=== PATIENT | female | born 1965 | race Two or more races ===

== ENCOUNTER 2018-11-21 13:20 | Emergency (ER) | payer MEDICAID ==
[~2018-11-21] VITALS: Ht 167.6 cm; Wt 78.0 kg
[2018-11-21] MEDS ORDERED: SODIUM CHLORIDE 0.9% 1,000 ML IV ONE (13:45)
[2018-11-21] MEDS ORDERED: KETOROLAC 60MG/2ML VIAL IM ONE (17:30)
[2018-11-21 17:46] LABS: BASOPHILS % 0.7 % (0.0-2.0); EOSINOPHILS % 4.3 % (0.0-5.0); HEMATOCRIT. 38.3 % (36.0-48.0); HEMOGLOBIN. 13.3 g/dL (12.0-16.0); LYMPHOCYTES % 28.9 % (20.0-50.0); MEAN CORPUSCULAR HEMOGLOBIN 31.8 pg (28.0-32.0); MEAN CORPUSCULAR VOLUME 91.5 fL (81.0-99.0); MEAN PLATELET VOLUME 10.1 fl (7.4-10.4); MONOCYTES % 8.9 % (2.0-8.0); NEUTROPHILS % 57.2 % (40.0-76.0); PLATELET 288 x1000/uL (130-400); RED BLOOD CELL COUNT 4.19 mill/uL (4.2-5.4); RED CELL DISTRIBUTION WIDTH 12.9 % (11.6-14.6)
[2018-11-21 17:50] LABS: CHLORIDE 105 mEq/L (98-107)
[2018-11-21] MEDS ORDERED: HYDROCODONE/ACETAMINOPHEN 5/325MG TABLET PO ONE (21:00)
[2018-11-22] MEDS ORDERED: ONDANSETRON HCL 4MG/2ML INJ IV NR (00:15)
[2018-11-22] MEDS ORDERED: MORPHINE SULFATE 4 MG/ML CPJ (NOT FOR IM USE) IV NR (00:15)
[2018-11-22] MEDS ORDERED: IOHEXOL-300 100 ML BOTTLE ONE (04:08)
[2018-11-22] MEDS ORDERED: ACETAMINOPHEN 325MG TABLET PO ONE (05:45)
[2018-11-22] MEDS ORDERED: KETOROLAC 15MG/ML VIAL IV ONE (08:30)
[2018-11-22 15:00] VITALS: BP 140/78
== END 2018-11-22 18:55 | disposition home or self-care (01) ==
LOC: ER 13:20 → CANBEDREQ 11-22 14:43 → ER 11-22 18:55
DX: M79.18 Myalgia, other site (principal); J45.909 Unspecified asthma, uncomplicated; F32.9 Major depressive disorder, single episode, unspecified; E11.9 Type 2 diabetes mellitus without complications; I10 Essential (primary) hypertension
CPT/HCPCS: 36415; 71045; 74177; 80048; 82962; 84484; 85025; 93005; 96372; 96374; 96375; 99284; J1885; J2270; J2405; J7030; Q9967

== ENCOUNTER 2019-03-14 11:18 | Inpatient (IN) | payer MEDICAID ==
[~2019-03-14] VITALS: Ht 162.6 cm; Wt 82.1 kg
[2019-03-14] MEDS ORDERED: KETOROLAC 60MG/2ML VIAL IM ONE (12:15)
[2019-03-14] MEDS ORDERED: SODIUM CHLORIDE 0.9% 1,000 ML IV ONE (16:39)
[2019-03-14 16:48] LABS: HEMATOCRIT. 41.1 % (36.0-48.0); HEMOGLOBIN. 14.1 g/dL (12.0-16.0); LYMPHOCYTES % 18.7 % (20.0-50.0); MEAN CORPUSCULAR HEMOGLOBIN 33.4 pg (28.0-32.0); MEAN CORPUSCULAR VOLUME 97.7 fL (81.0-99.0); MEAN PLATELET VOLUME 10.1 fl (7.4-10.4); MONOCYTES % 6.8 % (2.0-8.0); NEUTROPHILS % 72.5 % (40.0-76.0); PLATELET 349 x1000/uL (130-400); RED BLOOD CELL COUNT 4.21 mill/uL (4.2-5.4); RED CELL DISTRIBUTION WIDTH 14.6 % (11.6-14.6)
[2019-03-14 16:51] LABS: CHLORIDE 104 mEq/L (98-107)
[2019-03-14] MEDS ORDERED: FUROSEMIDE 20MG/2ML VIAL IVP ONE (17:45)
[2019-03-14] MEDS ORDERED: CLONIDINE 0.1MG TABLET PO PRN (18:30)
[2019-03-14] MEDS: ACETAMINOPHEN 325MG TABLET PO PRN (20:25)
[2019-03-14 22:00] VITALS: BP 155/91
[2019-03-14 22:05] VITALS: BP 155/91
[2019-03-14] MEDS ORDERED: GABA-529 PO (23:40)
[2019-03-15] VITALS: BP 142/82
[2019-03-15] MEDS ORDERED: DIVA-75 PO (00:05)
[2019-03-15] MEDS ORDERED: ATOR20TA65 PO (00:05)
[2019-03-15] MEDS ORDERED: LISI40TA4 PO (00:05)
[2019-03-15] MEDS ORDERED: TRAZ-251 PO (00:05)
[2019-03-15] MEDS ORDERED: ASPI-1497 PO (00:05)
[2019-03-15] MEDS ORDERED: AMLO5TAB88 PO (00:11)
[2019-03-15] MEDS: ACETAMINOPHEN 325MG TABLET PO PRN ×3 (02:31→16:06)
[2019-03-15] MEDS: ONDANSETRON HCL 4MG/2ML INJ IV PRN (02:36)
[2019-03-15 04:00] VITALS: BP 135/88
[2019-03-15 06:56] LABS: BASOPHILS % 1.1 % (0.0-2.0); EOSINOPHILS % 3.2 % (0.0-5.0); HEMATOCRIT. 36.3 % (36.0-48.0); HEMOGLOBIN. 12.5 g/dL (12.0-16.0); LYMPHOCYTES % 34.2 % (20.0-50.0); MEAN CORPUSCULAR HEMOGLOBIN 32.8 pg (28.0-32.0); MEAN CORPUSCULAR VOLUME 95.1 fL (81.0-99.0); MEAN PLATELET VOLUME 9.9 fl (7.4-10.4); MONOCYTES % 12.6 % (2.0-8.0); NEUTROPHILS % 48.9 % (40.0-76.0); PLATELET 316 x1000/uL (130-400); RED BLOOD CELL COUNT 3.82 mill/uL (4.2-5.4); RED CELL DISTRIBUTION WIDTH 14.4 % (11.6-14.6)
[2019-03-15 06:58] LABS: CHLORIDE 106 mEq/L (98-107)
[2019-03-15 08:00] VITALS: BP 127/77
[2019-03-15] MEDS ORDERED: POTASSIUM CHLORIDE 20MEQ/PACKET PO SCH (09:00)
[2019-03-15] MEDS: CLOPIDOGREL 75MG TABLET PO SCH (09:40)
[2019-03-15] MEDS: ENOXAPARIN 40MG/0.4ML SYR SUBCUT SCH (09:41)
[2019-03-15 12:00] VITALS: BP 118/75
[2019-03-15 16:00] VITALS: BP 139/73
[2019-03-15] MEDS ORDERED: DEXTROSE 50% WATER 50ML SYRINGE IV PRN (17:45)
[2019-03-15] MEDS: INSULIN LISPRO 100 UNITS/ML SUBCUT SCH ×2 (18:10→20:53)
[2019-03-15] MEDS: AMLODIPINE 5MG TABLET PO SCH (18:46)
[2019-03-15] MEDS: KETOROLAC 30MG/ML VIAL IV NR ×2 (18:47→20:52)
[2019-03-15 20:00] VITALS: BP 141/82
[2019-03-15] MEDS: BLOOD SUGAR DIAGNOSTIC STRIP TEST SCH (20:52)
[2019-03-16 00:05] VITALS: BP 154/84
[2019-03-16] MEDS: ONDANSETRON HCL 4MG/2ML INJ IV PRN (01:00)
[2019-03-16 04:00] VITALS: BP 128/69
[2019-03-16] MEDS: KETOROLAC 30MG/ML VIAL IV PRN ×3 (04:56→17:22)
[2019-03-16] MEDS: BLOOD SUGAR DIAGNOSTIC STRIP TEST SCH ×4 (05:55→20:55)
[2019-03-16 07:40] LABS: BASOPHILS % 1.1 % (0.0-2.0); EOSINOPHILS % 3.6 % (0.0-5.0); HEMATOCRIT. 37.9 % (36.0-48.0); HEMOGLOBIN. 13.2 g/dL (12.0-16.0); LYMPHOCYTES % 36.8 % (20.0-50.0); MEAN CORPUSCULAR HEMOGLOBIN 33.5 pg (28.0-32.0); MEAN CORPUSCULAR VOLUME 96.1 fL (81.0-99.0); MEAN PLATELET VOLUME 9.6 fl (7.4-10.4); NEUTROPHILS % 47.5 % (40.0-76.0); PLATELET 308 x1000/uL (130-400); RED BLOOD CELL COUNT 3.95 mill/uL (4.2-5.4); RED CELL DISTRIBUTION WIDTH 14.2 % (11.6-14.6)
[2019-03-16 07:45] LABS: CHLORIDE 104 mEq/L (98-107)
[2019-03-16] MEDS: INSULIN LISPRO 100 UNITS/ML SUBCUT SCH ×4 (07:51→20:55)
[2019-03-16 08:00] VITALS: BP 119/66
[2019-03-16] MEDS: CLOPIDOGREL 75MG TABLET PO SCH (09:58)
[2019-03-16] MEDS: ENOXAPARIN 40MG/0.4ML SYR SUBCUT SCH (09:58)
[2019-03-16] MEDS: AMLODIPINE 5MG TABLET PO SCH (10:00)
[2019-03-16 12:00] VITALS: BP 120/77
[2019-03-16 16:00] VITALS: BP 132/75
[2019-03-16 20:00] VITALS: BP 137/71
[2019-03-16] MEDS: ACETAMINOPHEN 325MG TABLET PO PRN (20:59)
[2019-03-16] MEDS: HYDROCODONE/ACETAMINOPHEN 5/325MG TABLET PO PRN (23:39)
[2019-03-17] VITALS: BP 130/67
[2019-03-17 04:00] VITALS: BP 132/68
[2019-03-17 08:00] VITALS: BP 123/61
[2019-03-17] MEDS: INSULIN LISPRO 100 UNITS/ML SUBCUT SCH ×4 (08:10→21:00)
[2019-03-17] MEDS: BLOOD SUGAR DIAGNOSTIC STRIP TEST SCH ×4 (08:12→21:17)
[2019-03-17 09:17] LABS: CHLORIDE 106 mEq/L (98-107)
[2019-03-17] MEDS: CLOPIDOGREL 75MG TABLET PO SCH (10:03)
[2019-03-17] MEDS: KETOROLAC 30MG/ML VIAL IV PRN ×2 (10:04→17:47)
[2019-03-17] MEDS: AMLODIPINE 5MG TABLET PO SCH (10:04)
[2019-03-17 10:37] LABS: BASOPHILS % 1.2 % (0.0-2.0); EOSINOPHILS % 3.2 % (0.0-5.0); HEMATOCRIT. 36.9 % (36.0-48.0); HEMOGLOBIN. 12.7 g/dL (12.0-16.0); LYMPHOCYTES % 34.6 % (20.0-50.0); MEAN CORPUSCULAR HEMOGLOBIN 33.3 pg (28.0-32.0); MEAN CORPUSCULAR VOLUME 96.4 fL (81.0-99.0); MEAN PLATELET VOLUME 9.9 fl (7.4-10.4); MONOCYTES % 10.3 % (2.0-8.0); NEUTROPHILS % 50.7 % (40.0-76.0); PLATELET 324 x1000/uL (130-400); RED BLOOD CELL COUNT 3.82 mill/uL (4.2-5.4); RED CELL DISTRIBUTION WIDTH 14.2 % (11.6-14.6)
[2019-03-17 12:00] VITALS: BP 111/70
[2019-03-17] MEDS: HYDROCODONE/ACETAMINOPHEN 5/325MG TABLET PO PRN ×2 (14:48→23:37)
[2019-03-17 16:00] VITALS: BP 155/99
[2019-03-17 20:00] VITALS: BP 129/84
[2019-03-17] MEDS: ZOLPIDEM TARTRATE 5MG TABLET PO PRN (23:37)
[2019-03-18] VITALS: BP 137/83
[2019-03-18 04:00] VITALS: BP 135/63
[2019-03-18] MEDS: BLOOD SUGAR DIAGNOSTIC STRIP TEST SCH ×4 (06:55→21:45)
[2019-03-18 08:00] VITALS: BP 119/74
[2019-03-18] MEDS: INSULIN LISPRO 100 UNITS/ML SUBCUT SCH ×4 (08:10→21:00)
[2019-03-18 08:25] LABS: BASOPHILS % 1.2 % (0.0-2.0); EOSINOPHILS % 2.9 % (0.0-5.0); HEMOGLOBIN. 12.7 g/dL (12.0-16.0); LYMPHOCYTES % 31.7 % (20.0-50.0); MEAN CORPUSCULAR HEMOGLOBIN 32.7 pg (28.0-32.0); MEAN CORPUSCULAR VOLUME 95.3 fL (81.0-99.0); MEAN PLATELET VOLUME 9.9 fl (7.4-10.4); MONOCYTES % 10.6 % (2.0-8.0); NEUTROPHILS % 53.6 % (40.0-76.0); PLATELET 326 x1000/uL (130-400); RED BLOOD CELL COUNT 3.89 mill/uL (4.2-5.4)
[2019-03-18] MEDS: CLOPIDOGREL 75MG TABLET PO SCH (08:54)
[2019-03-18 08:55] LABS: CHLORIDE 105 mEq/L (98-107)
[2019-03-18] MEDS: AMLODIPINE 5MG TABLET PO SCH (08:55)
[2019-03-18] MEDS: ENOXAPARIN 40MG/0.4ML SYR SUBCUT SCH ×2 (08:56→09:00)
[2019-03-18] MEDS: KETOROLAC 30MG/ML VIAL IV PRN ×3 (10:02→23:16)
[2019-03-18 12:00] VITALS: BP 138/54
[2019-03-18 16:00] VITALS: BP 152/94
[2019-03-18] MEDS: DOCUSATE SODIUM 100MG CAPSULE PO SCH (17:52)
[2019-03-18 20:00] VITALS: BP 148/85
[2019-03-18] MEDS: ZOLPIDEM TARTRATE 5MG TABLET PO PRN (21:23)
[2019-03-19] VITALS: BP 126/76
[2019-03-19 04:00] VITALS: BP 108/73
[2019-03-19] MEDS: BLOOD SUGAR DIAGNOSTIC STRIP TEST SCH ×4 (06:15→20:29)
[2019-03-19 06:45] LABS: CHLORIDE 105 mEq/L (98-107)
[2019-03-19 06:50] LABS: BASOPHILS % 1.2 % (0.0-2.0); EOSINOPHILS % 3.3 % (0.0-5.0); HEMATOCRIT. 39.4 % (36.0-48.0); HEMOGLOBIN. 13.8 g/dL (12.0-16.0); LYMPHOCYTES % 30.5 % (20.0-50.0); MEAN CORPUSCULAR HEMOGLOBIN 33.3 pg (28.0-32.0); MEAN CORPUSCULAR VOLUME 95.3 fL (81.0-99.0); MEAN PLATELET VOLUME 9.9 fl (7.4-10.4); MONOCYTES % 9.9 % (2.0-8.0); NEUTROPHILS % 55.1 % (40.0-76.0); PLATELET 324 x1000/uL (130-400); RED BLOOD CELL COUNT 4.13 mill/uL (4.2-5.4); RED CELL DISTRIBUTION WIDTH 14.1 % (11.6-14.6)
[2019-03-19] MEDS: INSULIN LISPRO 100 UNITS/ML SUBCUT SCH ×4 (07:52→20:29)
[2019-03-19 08:00] VITALS: BP 155/77
[2019-03-19] MEDS: AMLODIPINE 5MG TABLET PO SCH (08:35)
[2019-03-19] MEDS: CLOPIDOGREL 75MG TABLET PO SCH (08:35)
[2019-03-19] MEDS: DOCUSATE SODIUM 100MG CAPSULE PO SCH ×2 (08:35→17:00)
[2019-03-19 12:00] VITALS: BP 130/83
[2019-03-19] MEDS: KETOROLAC 30MG/ML VIAL IV PRN (12:20)
[2019-03-19] MEDS: ACETAMINOPHEN 325MG TABLET PO PRN ×2 (15:05→23:24)
[2019-03-19 16:00] VITALS: BP 131/77
[2019-03-19 20:00] VITALS: BP_SYST 101; BP_SYST 133; BP_DIAS 56; BP_DIAS 73
[2019-03-19] MEDS: HYDROCODONE/ACETAMINOPHEN 5/325MG TABLET PO PRN (20:26)
[2019-03-19] MEDS: ZOLPIDEM TARTRATE 5MG TABLET PO PRN (23:23)
[2019-03-20] VITALS: BP 123/61
[2019-03-20 04:00] VITALS: BP 125/87
[2019-03-20] MEDS: INSULIN LISPRO 100 UNITS/ML SUBCUT SCH ×4 (06:28→20:07)
[2019-03-20] MEDS: BLOOD SUGAR DIAGNOSTIC STRIP TEST SCH ×4 (06:28→20:07)
[2019-03-20 07:25] LABS: EOSINOPHILS % 3.7 % (0.0-5.0); HEMOGLOBIN. 12.9 g/dL (12.0-16.0); LYMPHOCYTES % 38.4 % (20.0-50.0); MEAN CORPUSCULAR VOLUME 94.5 fL (81.0-99.0); MEAN PLATELET VOLUME 9.9 fl (7.4-10.4); MONOCYTES % 9.4 % (2.0-8.0); NEUTROPHILS % 47.5 % (40.0-76.0); PLATELET 306 x1000/uL (130-400); RED BLOOD CELL COUNT 3.92 mill/uL (4.2-5.4); RED CELL DISTRIBUTION WIDTH 14.3 % (11.6-14.6)
[2019-03-20 07:47] LABS: CHLORIDE 106 mEq/L (98-107)
[2019-03-20 08:00] VITALS: BP 110/75
[2019-03-20] MEDS: CLOPIDOGREL 75MG TABLET PO SCH (09:26)
[2019-03-20] MEDS: DOCUSATE SODIUM 100MG CAPSULE PO SCH ×2 (09:26→16:12)
[2019-03-20] MEDS: AMLODIPINE 5MG TABLET PO SCH (09:26)
[2019-03-20 12:00] VITALS: BP 125/63
[2019-03-20] MEDS: KETOROLAC 30MG/ML VIAL IV PRN (15:12)
[2019-03-20 16:00] VITALS: BP 127/75
[2019-03-20 20:00] VITALS: BP 127/75
[2019-03-20] MEDS: ZOLPIDEM TARTRATE 5MG TABLET PO PRN (20:12)
[2019-03-20] MEDS: ACETAMINOPHEN 325MG TABLET PO PRN (20:13)
[2019-03-21] VITALS: BP 130/78
[2019-03-21 04:00] VITALS: BP 123/73
[2019-03-21] MEDS: BLOOD SUGAR DIAGNOSTIC STRIP TEST SCH ×4 (06:48→21:47)
[2019-03-21] MEDS: INSULIN LISPRO 100 UNITS/ML SUBCUT SCH ×4 (06:48→21:00)
[2019-03-21 08:00] VITALS: BP 132/62
[2019-03-21] MEDS: DOCUSATE SODIUM 100MG CAPSULE PO SCH ×2 (09:00→16:43)
[2019-03-21 12:00] VITALS: BP 128/74
[2019-03-21] MEDS: CLOPIDOGREL 75MG TABLET PO SCH (12:12)
[2019-03-21] MEDS: ACETAMINOPHEN 325MG TABLET PO PRN ×2 (12:13→18:31)
[2019-03-21] MEDS: AMLODIPINE 5MG TABLET PO SCH (12:13)
[2019-03-21 16:00] VITALS: BP 111/69
[2019-03-21 20:00] VITALS: BP 116/65
[2019-03-21] MEDS: ZOLPIDEM TARTRATE 5MG TABLET PO PRN (21:52)
[2019-03-21] MEDS: HYDROCODONE/ACETAMINOPHEN 5/325MG TABLET PO PRN (21:53)
[2019-03-22] VITALS: BP 121/71
[2019-03-22] MEDS: BLOOD SUGAR DIAGNOSTIC STRIP TEST SCH ×4 (06:25→21:27)
[2019-03-22] MEDS: INSULIN LISPRO 100 UNITS/ML SUBCUT SCH ×4 (06:34→21:27)
[2019-03-22 07:03] LABS: BASOPHILS % 1.1 % (0.0-2.0); EOSINOPHILS % 3.8 % (0.0-5.0); HEMATOCRIT. 36.6 % (36.0-48.0); HEMOGLOBIN. 12.7 g/dL (12.0-16.0); MEAN CORPUSCULAR HEMOGLOBIN 33.2 pg (28.0-32.0); MEAN PLATELET VOLUME 9.8 fl (7.4-10.4); MONOCYTES % 11.1 % (2.0-8.0); PLATELET 300 x1000/uL (130-400); RED BLOOD CELL COUNT 3.82 mill/uL (4.2-5.4); RED CELL DISTRIBUTION WIDTH 13.9 % (11.6-14.6)
[2019-03-22 07:08] LABS: CHLORIDE 107 mEq/L (98-107)
[2019-03-22 08:00] VITALS: BP 121/62
[2019-03-22] MEDS: AMLODIPINE 5MG TABLET PO SCH (09:11)
[2019-03-22] MEDS: DOCUSATE SODIUM 100MG CAPSULE PO SCH ×2 (09:11→17:00)
[2019-03-22] MEDS: CLOPIDOGREL 75MG TABLET PO SCH (09:11)
[2019-03-22] MEDS: HYDROCODONE/ACETAMINOPHEN 5/325MG TABLET PO PRN ×2 (10:02→16:45)
[2019-03-22 12:00] VITALS: BP 106/63
[2019-03-22 16:00] VITALS: BP 125/63
[2019-03-22 20:00] VITALS: BP 144/85
[2019-03-22] MEDS: ZOLPIDEM TARTRATE 5MG TABLET PO PRN (21:27)
[2019-03-23] VITALS: BP 126/80
[2019-03-23 04:00] VITALS: BP 113/64
[2019-03-23] MEDS: HYDROCODONE/ACETAMINOPHEN 5/325MG TABLET PO PRN ×2 (05:38→14:06)
[2019-03-23] MEDS: BLOOD SUGAR DIAGNOSTIC STRIP TEST SCH ×4 (07:40→21:24)
[2019-03-23 07:51] LABS: BASOPHILS % 1.3 % (0.0-2.0); EOSINOPHILS % 4.1 % (0.0-5.0); HEMATOCRIT. 37.5 % (36.0-48.0); HEMOGLOBIN. 13.1 g/dL (12.0-16.0); LYMPHOCYTES % 43.3 % (20.0-50.0); MEAN CORPUSCULAR HEMOGLOBIN 33.2 pg (28.0-32.0); MEAN CORPUSCULAR VOLUME 95.1 fL (81.0-99.0); MEAN PLATELET VOLUME 9.9 fl (7.4-10.4); MONOCYTES % 10.3 % (2.0-8.0); PLATELET 303 x1000/uL (130-400); RED BLOOD CELL COUNT 3.95 mill/uL (4.2-5.4)
[2019-03-23 08:00] VITALS: BP 133/82
[2019-03-23] MEDS: INSULIN LISPRO 100 UNITS/ML SUBCUT SCH ×4 (08:10→21:26)
[2019-03-23 08:43] LABS: CHLORIDE 106 mEq/L (98-107)
[2019-03-23] MEDS: DOCUSATE SODIUM 100MG CAPSULE PO SCH ×2 (09:00→17:00)
[2019-03-23] MEDS: CLOPIDOGREL 75MG TABLET PO SCH (09:19)
[2019-03-23] MEDS: AMLODIPINE 5MG TABLET PO SCH (09:20)
[2019-03-23 12:00] VITALS: BP 145/84
[2019-03-23 16:00] VITALS: BP 126/57
[2019-03-23 20:00] VITALS: BP 112/52
[2019-03-23] MEDS: ACETAMINOPHEN 325MG TABLET PO PRN (22:57)
[2019-03-24] VITALS: BP 109/55
[2019-03-24 04:00] VITALS: BP 128/62
[2019-03-24] MEDS: BLOOD SUGAR DIAGNOSTIC STRIP TEST SCH ×4 (07:40→20:28)
[2019-03-24 08:00] VITALS: BP 131/71
[2019-03-24] MEDS: INSULIN LISPRO 100 UNITS/ML SUBCUT SCH ×4 (08:10→20:28)
[2019-03-24] MEDS: DOCUSATE SODIUM 100MG CAPSULE PO SCH ×2 (09:00→17:00)
[2019-03-24] MEDS: AMLODIPINE 5MG TABLET PO SCH (09:11)
[2019-03-24] MEDS: CLOPIDOGREL 75MG TABLET PO SCH (09:11)
[2019-03-24] MEDS: HYDROCODONE/ACETAMINOPHEN 5/325MG TABLET PO PRN ×2 (09:44→18:00)
[2019-03-24 12:00] VITALS: BP 130/62
[2019-03-24 16:00] VITALS: BP 122/70
[2019-03-24 20:00] VITALS: BP 110/53
[2019-03-25 00:03] VITALS: BP 141/85
[2019-03-25] MEDS: ZOLPIDEM TARTRATE 5MG TABLET PO PRN ×2 (02:15→21:32)
[2019-03-25] MEDS: HYDROCODONE/ACETAMINOPHEN 5/325MG TABLET PO PRN ×3 (02:17→21:32)
[2019-03-25 04:00] VITALS: BP 119/74
[2019-03-25] MEDS: BLOOD SUGAR DIAGNOSTIC STRIP TEST SCH ×4 (05:36→21:00)
[2019-03-25 08:00] VITALS: BP 129/66
[2019-03-25] MEDS: INSULIN LISPRO 100 UNITS/ML SUBCUT SCH ×4 (08:10→21:00)
[2019-03-25] MEDS: DOCUSATE SODIUM 100MG CAPSULE PO SCH ×2 (09:00→17:41)
[2019-03-25] MEDS: CLOPIDOGREL 75MG TABLET PO SCH (09:12)
[2019-03-25] MEDS: AMLODIPINE 5MG TABLET PO SCH (09:12)
[2019-03-25 12:00] VITALS: BP 115/67
[2019-03-25 16:00] VITALS: BP 117/69
[2019-03-25 20:00] VITALS: BP 136/84
[2019-03-26 00:20] VITALS: BP 129/86
[2019-03-26 04:00] VITALS: BP 104/58
[2019-03-26] MEDS: BLOOD SUGAR DIAGNOSTIC STRIP TEST SCH ×4 (05:56→21:41)
[2019-03-26 08:00] VITALS: BP 147/79
[2019-03-26] MEDS: INSULIN LISPRO 100 UNITS/ML SUBCUT SCH ×4 (08:10→21:00)
[2019-03-26] MEDS: AMLODIPINE 5MG TABLET PO SCH (09:04)
[2019-03-26] MEDS: DOCUSATE SODIUM 100MG CAPSULE PO SCH ×2 (09:04→17:00)
[2019-03-26] MEDS: CLOPIDOGREL 75MG TABLET PO SCH (09:04)
[2019-03-26] MEDS: HYDROCODONE/ACETAMINOPHEN 5/325MG TABLET PO PRN (10:33)
[2019-03-26 12:00] VITALS: BP 140/73
[2019-03-26 16:00] VITALS: BP 102/67
[2019-03-26 20:00] VITALS: BP 104/56
[2019-03-26] MEDS: ACETAMINOPHEN 325MG TABLET PO PRN (21:41)
[2019-03-26] MEDS: ZOLPIDEM TARTRATE 5MG TABLET PO PRN (21:41)
[2019-03-27] VITALS: BP 105/52
[2019-03-27 04:00] VITALS: BP 143/59
[2019-03-27 08:00] VITALS: BP 137/80
[2019-03-27] MEDS: INSULIN LISPRO 100 UNITS/ML SUBCUT SCH ×4 (08:10→21:55)
[2019-03-27] MEDS: DOCUSATE SODIUM 100MG CAPSULE PO SCH ×2 (09:06→17:00)
[2019-03-27] MEDS: AMLODIPINE 5MG TABLET PO SCH (09:06)
[2019-03-27] MEDS: CLOPIDOGREL 75MG TABLET PO SCH (09:06)
[2019-03-27 12:00] VITALS: BP 126/70
[2019-03-27] MEDS: BLOOD SUGAR DIAGNOSTIC STRIP TEST SCH ×2 (12:40→21:55)
[2019-03-27] MEDS: ACETAMINOPHEN 325MG TABLET PO PRN ×2 (12:54→21:57)
[2019-03-27 16:00] VITALS: BP 100/55
[2019-03-27] MEDS: HYDROCODONE/ACETAMINOPHEN 5/325MG TABLET PO PRN (17:25)
[2019-03-27 20:00] VITALS: BP 110/65
[2019-03-27] MEDS: ZOLPIDEM TARTRATE 5MG TABLET PO PRN (21:56)
[2019-03-28] VITALS: BP 113/55
[2019-03-28 04:00] VITALS: BP 115/56
[2019-03-28] MEDS: BLOOD SUGAR DIAGNOSTIC STRIP TEST SCH ×5 (06:29→20:22)
[2019-03-28] MEDS: INSULIN LISPRO 100 UNITS/ML SUBCUT SCH ×4 (06:31→20:23)
[2019-03-28] MEDS: HYDROCODONE/ACETAMINOPHEN 5/325MG TABLET PO PRN ×2 (07:08→15:40)
[2019-03-28 08:00] VITALS: BP 134/81
[2019-03-28] MEDS ORDERED: DIVALPROEX SODIUM 500MG DR TABLET PO SCH (09:00)
[2019-03-28] MEDS: DOCUSATE SODIUM 100MG CAPSULE PO SCH ×3 (09:00→17:00)
[2019-03-28] MEDS: GABAPENTIN 100MG CAPSULE PO SCH ×3 (09:04→20:23)
[2019-03-28] MEDS: AMLODIPINE 5MG TABLET PO SCH (09:04)
[2019-03-28] MEDS: CLOPIDOGREL 75MG TABLET PO SCH (09:04)
[2019-03-28] MEDS: DIVALPROEX SODIUM 250MG DR TABLET PO SCH ×2 (09:04→20:23)
[2019-03-28] MEDS: LISINOPRIL 40MG TABLET PO SCH (09:05)
[2019-03-28] MEDS: ASPIRIN 81MG EC TABLET PO SCH (09:06)
[2019-03-28 12:00] VITALS: BP 110/62
[2019-03-28 16:00] VITALS: BP 127/79
[2019-03-28 20:00] VITALS: BP 113/65
[2019-03-28] MEDS: ZOLPIDEM TARTRATE 5MG TABLET PO PRN (20:23)
[2019-03-28] MEDS: TRAZODONE HCL 50MG TABLET PO SCH (20:23)
[2019-03-28] MEDS: ATORVASTATIN CALCIUM 20MG TABLET PO SCH (20:23)
[2019-03-29] VITALS: BP 115/68
[2019-03-29 04:00] VITALS: BP 128/83
[2019-03-29] MEDS: GABAPENTIN 100MG CAPSULE PO SCH ×3 (05:12→21:08)
[2019-03-29] MEDS: BLOOD SUGAR DIAGNOSTIC STRIP TEST SCH ×4 (06:56→21:11)
[2019-03-29 08:00] VITALS: BP 98/60
[2019-03-29] MEDS: INSULIN LISPRO 100 UNITS/ML SUBCUT SCH ×4 (08:10→21:00)
[2019-03-29] MEDS: ASPIRIN 81MG EC TABLET PO SCH (08:55)
[2019-03-29] MEDS: CLOPIDOGREL 75MG TABLET PO SCH (08:55)
[2019-03-29] MEDS: DOCUSATE SODIUM 100MG CAPSULE PO SCH ×2 (08:55→16:45)
[2019-03-29] MEDS: AMLODIPINE 5MG TABLET PO SCH (08:56)
[2019-03-29] MEDS: LISINOPRIL 40MG TABLET PO SCH (08:56)
[2019-03-29] MEDS: DIVALPROEX SODIUM 250MG DR TABLET PO SCH ×2 (09:02→21:09)
[2019-03-29 12:00] VITALS: BP 105/70
[2019-03-29] MEDS: HYDROCODONE/ACETAMINOPHEN 5/325MG TABLET PO PRN ×2 (15:22→21:26)
[2019-03-29 16:00] VITALS: BP 112/68
[2019-03-29 20:00] VITALS: BP 126/61
[2019-03-29] MEDS: ATORVASTATIN CALCIUM 20MG TABLET PO SCH (21:08)
[2019-03-29] MEDS: TRAZODONE HCL 50MG TABLET PO SCH (21:10)
[2019-03-29] MEDS: ZOLPIDEM TARTRATE 5MG TABLET PO PRN (21:25)
[2019-03-30] VITALS: BP 122/68
[2019-03-30 04:00] VITALS: BP 115/64
[2019-03-30] MEDS: HYDROCODONE/ACETAMINOPHEN 5/325MG TABLET PO PRN (04:16)
[2019-03-30] MEDS: GABAPENTIN 100MG CAPSULE PO SCH (05:30)
[2019-03-30] MEDS: BLOOD SUGAR DIAGNOSTIC STRIP TEST SCH (06:05)
[2019-03-30 08:00] VITALS: BP 106/53
[2019-03-30] MEDS: AMLODIPINE 5MG TABLET PO SCH (08:31)
[2019-03-30] MEDS: INSULIN LISPRO 100 UNITS/ML SUBCUT SCH (08:31)
[2019-03-30] MEDS: ASPIRIN 81MG EC TABLET PO SCH (08:36)
[2019-03-30] MEDS: CLOPIDOGREL 75MG TABLET PO SCH (08:36)
[2019-03-30] MEDS: DOCUSATE SODIUM 100MG CAPSULE PO SCH (08:36)
[2019-03-30] MEDS: DIVALPROEX SODIUM 250MG DR TABLET PO SCH (08:37)
[2019-03-30] MEDS: LISINOPRIL 40MG TABLET PO SCH (08:44)
[2019-03-30 11:35] VITALS: BP_SYST 106; BP_SYST 148; BP_DIAS 53; BP_DIAS 80
[2019-03-30 12:00] VITALS: BP 148/80
== END 2019-03-30 13:22 | DRG 385 ==
LOC: ER 11:18 → 7WST 17:17 → EDBEDREQ 17:28 → EDBEDREQSVC 17:28 → ENRESERV 19:17
PROVIDERS: ADMIT Internal Medicine; ATTEND Internal Medicine
DX: R22.1 Localized swelling, mass and lump, neck (principal); I11.0 Hypertensive heart disease with heart failure; I50.9 Heart failure, unspecified; C02.9 Malignant neoplasm of tongue, unspecified; E11.9 Type 2 diabetes mellitus without complications; E66.9 Obesity, unspecified; F32.9 Major depressive disorder, single episode, unspecified; J45.909 Unspecified asthma, uncomplicated; Z60.2 Problems related to living alone; F41.9 Anxiety disorder, unspecified; Z79.899 Other long term (current) drug therapy; Z68.31 Body mass index [BMI] 31.0-31.9, adult; Z71.89 Other specified counseling; Z79.82 Long term (current) use of aspirin; Z86.73 Personal history of transient ischemic attack (TIA), and cerebral infarction without residual deficits
CPT/HCPCS: 36415; 70551; 71045; 74018; 80048; 80053; 80061; 82962; 83036; 83880; 84484; 85025; 92610; 93005; 93970; 97110; 97116; 97162; 97166; 97530; 97535; 99285; J1650; J1815; J1885; J1940; J2405; J7030; A4315

== ENCOUNTER 2019-05-05 12:04 | Inpatient (IN) | payer MEDICAID ==
[~2019-05-05] VITALS: Ht 154.9 cm; Wt 87.1 kg
[~2019-05-05 12:04] MED LIST: AMLO5TAB88 PO; ASPI-1497 PO; ATOR20TA65 PO; DIVA-75 PO; GABA-529 PO; LISI40TA4 PO; TRAZ-251 PO
[2019-05-05] MEDS ORDERED: METHYLPREDNISOLONE SOD SUCC 125 MG/2 ML VIAL IV STA (14:06)
[2019-05-05] MEDS ORDERED: ACETAMINOPHEN 325MG TABLET PO STA (14:06)
[2019-05-05] MEDS ORDERED: IPRATROPIUM BROMIDE (0.02%) 0.5MG/2.5ML NEB HHN STA (14:06)
[2019-05-05 14:29] LABS: BASOPHILS % 1.1 % (0.0-2.0); EOSINOPHILS % 5.3 % (0.0-5.0); HEMATOCRIT. 38.6 % (36.0-48.0); HEMOGLOBIN. 13.5 g/dL (12.0-16.0); LYMPHOCYTES % 39.1 % (20.0-50.0); MEAN CORPUSCULAR HEMOGLOBIN 33.4 pg (28.0-32.0); MEAN CORPUSCULAR VOLUME 95.7 fL (81.0-99.0); MEAN PLATELET VOLUME 9.5 fl (7.4-10.4); MONOCYTES % 7.6 % (2.0-8.0); NEUTROPHILS % 46.9 % (40.0-76.0); PLATELET 236 x1000/uL (130-400); RED BLOOD CELL COUNT 4.04 mill/uL (4.2-5.4); RED CELL DISTRIBUTION WIDTH 13.2 % (11.6-14.6)
[2019-05-05] MEDS ORDERED: ALBUTEROL (0.083%) 2.5MG/3ML NEB HHN SCH (14:30)
[2019-05-05 14:39] LABS: CHLORIDE 105 mEq/L (98-107)
[2019-05-05] MEDS ORDERED: SODIUM CHLORIDE 0.9% 1,000 ML IV ONE (16:03)
[2019-05-05] MEDS ORDERED: IBUPROFEN 400MG TABLET PO ONE (16:15)
[2019-05-05] MEDS ORDERED: CLONIDINE 0.1MG TABLET PO PRN (19:00)
[2019-05-05] MEDS ORDERED: GUAIFENESIN 200MG/10ML SUGAR FREE UDC PO PRN (19:00)
[2019-05-05] MEDS ORDERED: IPRATROPIUM/ALBUTEROL 0.5-3(2.5)MG/3ML NEB HHN PRN (19:00)
[2019-05-05] MEDS ORDERED: ONDANSETRON HCL 4MG/2ML INJ IV PRN (19:00)
[2019-05-05 19:07] LABS: PHOSPHORUS 3.1 mg/dL (2.5-4.9)
[2019-05-05 19:36] LABS: *AMPHETAMINES SCREEN URINE NEGATIVE (NEGATIVE); *BARBITURATES SCREEN URINE NEGATIVE (NEGATIVE); *BENZODIAZEPINES SCREEN URINE NEGATIVE (NEGATIVE); *COCAINE SCREEN URINE NEGATIVE (NEGATIVE); METHADONE URINE SCREEN NEGATIVE (NEGATIVE); OPIATES URINE SCREEN NEGATIVE (NEGATIVE)
[2019-05-05 19:37] LABS: CANNABINOID URINE SCREEN NEGATIVE (NEGATIVE); PHENCYCLIDINE URINE SCREEN NEGATIVE (NEGATIVE)
[2019-05-05 21:55] VITALS: BP 141/81
[2019-05-05 22:05] VITALS: BP 141/81
[2019-05-06] VITALS: BP 141/78
[2019-05-06] MEDS: ACETAMINOPHEN 325MG TABLET PO PRN ×2 (00:17→06:03)
[2019-05-06] MEDS: METHYLPREDNISOLONE SOD SUCC 125 MG/2 ML VIAL IV SCH ×3 (00:18→13:46)
[2019-05-06] MEDS: DIPHENHYDRAMINE 50MG/ML VIAL IV PRN ×3 (00:18→19:07)
[2019-05-06 04:00] VITALS: BP 149/90
[2019-05-06] MEDS ORDERED: LEVO50TA8 PO (05:46)
[2019-05-06] MEDS ORDERED: CLOP75TA4 PO (05:46)
[2019-05-06] MEDS ORDERED: METF-414 PO (05:46)
[2019-05-06] MEDS ORDERED: AMLO10TA80 PO (05:47)
[2019-05-06 07:02] LABS: BASOPHILS % 0.4 % (0.0-2.0); EOSINOPHILS % 0.1 % (0.0-5.0); HEMATOCRIT. 38.8 % (36.0-48.0); HEMOGLOBIN. 13.3 g/dL (12.0-16.0); LYMPHOCYTES % 16.1 % (20.0-50.0); MEAN CORPUSCULAR HEMOGLOBIN 32.8 pg (28.0-32.0); MEAN CORPUSCULAR VOLUME 95.7 fL (81.0-99.0); MEAN PLATELET VOLUME 10.2 fl (7.4-10.4); MONOCYTES % 1.5 % (2.0-8.0); NEUTROPHILS % 81.9 % (40.0-76.0); PLATELET 239 x1000/uL (130-400); RED BLOOD CELL COUNT 4.05 mill/uL (4.2-5.4); RED CELL DISTRIBUTION WIDTH 12.7 % (11.6-14.6)
[2019-05-06 08:00] VITALS: BP 123/78
[2019-05-06] MEDS: ENOXAPARIN 40MG/0.4ML SYR SUBCUT SCH (08:00)
[2019-05-06 08:14] LABS: CHLORIDE 104 mEq/L (98-107)
[2019-05-06 08:46] LABS: HDL CHOLESTEROL 64 mg/dL (40-59)
[2019-05-06 08:52] LABS: LDL CHOLESTEROL 236 mg/dL (5-100)
[2019-05-06] MEDS ORDERED: INFLUENZA VIRUS VACCINE(AFLURIA) 0.5ML SYR IM ONE (10:00)
[2019-05-06] MEDS ORDERED: PNEUMOCOCCAL 23-VAL P-SAC VAC 0.5 ML IM ONE (10:00)
[2019-05-06 12:00] VITALS: BP 118/69
[2019-05-06] MEDS: HYDROCODONE/ACETAMINOPHEN 5/325MG TABLET PO PRN ×2 (13:31→19:07)
[2019-05-06 16:00] VITALS: BP 134/88
[2019-05-06 16:48] LABS: T4 FREE 0.5 ng/dL (0.76-1.46)
[2019-05-06] MEDS ORDERED: DEXTROSE 50% WATER 50ML SYRINGE IV PRN (18:30)
[2019-05-06] MEDS: GABAPENTIN 100MG CAPSULE PO SCH (18:49)
[2019-05-06] MEDS: CLOPIDOGREL 75MG TABLET PO SCH (18:49)
[2019-05-06] MEDS: DIVALPROEX SODIUM 250MG DR TABLET PO SCH (18:49)
[2019-05-06] MEDS: METFORMIN HCL 500MG TABLET PO SCH (18:50)
[2019-05-06] MEDS: MONTELUKAST SODIUM 10MG TABLET PO SCH (18:50)
[2019-05-06 20:00] VITALS: BP 118/62
[2019-05-06] MEDS: IPRATROPIUM/ALBUTEROL 0.5-3(2.5)MG/3ML NEB HHN SCH (21:29)
[2019-05-06] MEDS: BUDESONIDE 0.5MG/2ML NEB HHN SCH (21:29)
[2019-05-06] MEDS: TRAZODONE HCL 50MG TABLET PO SCH (21:46)
[2019-05-06] MEDS: INSULIN LISPRO 100 UNITS/ML SUBCUT SCH (21:49)
[2019-05-06] MEDS: BLOOD SUGAR DIAGNOSTIC STRIP TEST SCH (21:50)
[2019-05-07] VITALS: BP 110/72
[2019-05-07] MEDS: IPRATROPIUM/ALBUTEROL 0.5-3(2.5)MG/3ML NEB HHN SCH ×4 (01:21→21:53)
[2019-05-07] MEDS: HYDROCODONE/ACETAMINOPHEN 5/325MG TABLET PO PRN ×4 (02:04→21:20)
[2019-05-07] MEDS: DIPHENHYDRAMINE 50MG/ML VIAL IV PRN ×4 (02:53→21:54)
[2019-05-07 06:00] VITALS: BP 128/85
[2019-05-07] MEDS: BUDESONIDE 0.5MG/2ML NEB HHN SCH ×2 (07:21→21:54)
[2019-05-07] MEDS: BLOOD SUGAR DIAGNOSTIC STRIP TEST SCH ×4 (07:33→21:14)
[2019-05-07] MEDS ORDERED: LEVOTHYROXINE SODIUM 50MCG TABLET PO SCH (07:40)
[2019-05-07 08:00] VITALS: BP 138/76
[2019-05-07] MEDS: ENOXAPARIN 40MG/0.4ML SYR SUBCUT SCH ×2 (08:00→08:09)
[2019-05-07] MEDS: INSULIN LISPRO 100 UNITS/ML SUBCUT SCH ×4 (08:07→21:14)
[2019-05-07] MEDS: GABAPENTIN 100MG CAPSULE PO SCH ×3 (08:09→19:11)
[2019-05-07] MEDS: LISINOPRIL 40MG TABLET PO SCH (08:10)
[2019-05-07] MEDS: METFORMIN HCL 500MG TABLET PO SCH ×2 (08:10→19:12)
[2019-05-07] MEDS: AMLODIPINE 10MG TABLET PO SCH (08:11)
[2019-05-07] MEDS: DIVALPROEX SODIUM 250MG DR TABLET PO SCH ×2 (08:16→19:11)
[2019-05-07 12:00] VITALS: BP 124/73
[2019-05-07 16:00] VITALS: BP 108/62
[2019-05-07] MEDS: CLOPIDOGREL 75MG TABLET PO SCH (19:11)
[2019-05-07] MEDS: MONTELUKAST SODIUM 10MG TABLET PO SCH (19:12)
[2019-05-07 20:00] VITALS: BP 124/79
[2019-05-07] MEDS: TRAZODONE HCL 50MG TABLET PO SCH (21:10)
[2019-05-08] VITALS: BP 96/52
[2019-05-08] MEDS: IPRATROPIUM/ALBUTEROL 0.5-3(2.5)MG/3ML NEB HHN SCH ×3 (02:42→13:50)
[2019-05-08] MEDS: HYDROCODONE/ACETAMINOPHEN 5/325MG TABLET PO PRN ×2 (02:54→08:40)
[2019-05-08 04:00] VITALS: BP 124/69
[2019-05-08] MEDS: DIPHENHYDRAMINE 50MG/ML VIAL IV PRN ×2 (04:09→09:16)
[2019-05-08] MEDS: BLOOD SUGAR DIAGNOSTIC STRIP TEST SCH ×2 (06:31→13:02)
[2019-05-08 06:39] LABS: CHLORIDE 101 mEq/L (98-107)
[2019-05-08 06:40] LABS: BASOPHILS % 0.3 % (0.0-2.0); EOSINOPHILS % 0.4 % (0.0-5.0); HEMATOCRIT. 36.1 % (36.0-48.0); HEMOGLOBIN. 12.6 g/dL (12.0-16.0); LYMPHOCYTES % 45.8 % (20.0-50.0); MEAN CORPUSCULAR HEMOGLOBIN 33.2 pg (28.0-32.0); MEAN CORPUSCULAR VOLUME 95.3 fL (81.0-99.0); MEAN PLATELET VOLUME 10.1 fl (7.4-10.4); MONOCYTES % 7.8 % (2.0-8.0); NEUTROPHILS % 45.7 % (40.0-76.0); PLATELET 224 x1000/uL (130-400); RED BLOOD CELL COUNT 3.79 mill/uL (4.2-5.4); RED CELL DISTRIBUTION WIDTH 12.7 % (11.6-14.6)
[2019-05-08] MEDS ORDERED: LEVOTHYROXINE SODIUM 75MCG TABLET PO SCH (07:40)
[2019-05-08 08:00] VITALS: BP 127/58
[2019-05-08] MEDS: INSULIN LISPRO 100 UNITS/ML SUBCUT SCH ×2 (08:10→13:02)
[2019-05-08] MEDS: BUDESONIDE 0.5MG/2ML NEB HHN SCH (08:13)
[2019-05-08] MEDS: DIVALPROEX SODIUM 250MG DR TABLET PO SCH (09:09)
[2019-05-08] MEDS: METFORMIN HCL 500MG TABLET PO SCH (09:09)
[2019-05-08] MEDS: GABAPENTIN 100MG CAPSULE PO SCH ×2 (09:09→13:01)
[2019-05-08] MEDS: LISINOPRIL 40MG TABLET PO SCH (09:11)
[2019-05-08] MEDS: AMLODIPINE 10MG TABLET PO SCH (09:12)
[2019-05-08 12:00] VITALS: BP 108/62
[2019-05-08] MEDS ORDERED: ATOR40TA70 MT (12:25)
[2019-05-08] MEDS ORDERED: LEVO75TA7 PO (12:26)
[2019-05-08 14:05] VITALS: BP 108/60
[2019-05-08] MEDS ORDERED: HYDR-4001 MT (18:27)
== END 2019-05-08 16:08 | disposition home health service (06) | DRG 133 ==
LOC: ER 12:04 → EDBEDREQ 14:26 → ENRESERV 20:39 → 7WST 22:13
PROVIDERS: ADMIT Internal Medicine; ATTEND Internal Medicine
DX: J96.00 Acute respiratory failure, unspecified whether with hypoxia or hypercapnia (principal); G62.9 Polyneuropathy, unspecified; J45.901 Unspecified asthma with (acute) exacerbation; E11.9 Type 2 diabetes mellitus without complications; E78.5 Hyperlipidemia, unspecified; F11.23 Opioid dependence with withdrawal; F41.9 Anxiety disorder, unspecified; F32.9 Major depressive disorder, single episode, unspecified; I10 Essential (primary) hypertension; E78.00 Pure hypercholesterolemia, unspecified; R22.1 Localized swelling, mass and lump, neck; F17.200 Nicotine dependence, unspecified, uncomplicated; M19.90 Unspecified osteoarthritis, unspecified site; R62.50 Unspecified lack of expected normal physiological development in childhood; E03.9 Hypothyroidism, unspecified; I69.354 Hemiplegia and hemiparesis following cerebral infarction affecting left non-dominant side; Z86.12 Personal history of poliomyelitis; Z99.3 Dependence on wheelchair; Z79.02 Long term (current) use of antithrombotics/antiplatelets; Z79.82 Long term (current) use of aspirin; Z79.899 Other long term (current) drug therapy; Z98.51 Tubal ligation status; Z79.84 Long term (current) use of oral hypoglycemic drugs
CPT/HCPCS: 36415; 71045; 73560; 80048; 80053; 80061; 80305; 82962; 83735; 83880; 84100; 84439; 84443; 84481; 84484; 85025; 90471; 90686; 90732; 93005; 93970; 94640; 96372; 96374; 96375; 97116; 97162; 97166; 99285; J1200; J1650; J1815; J2930; J7030; J7626

== ENCOUNTER 2019-10-03 02:35 | Emergency (ER) | payer MEDICAID, OTHER ==
[~2019-10-03] VITALS: Ht 165.1 cm; Wt 84.0 kg
[~2019-10-03 02:35] MED LIST changes: +AMLO10TA80 PO; -AMLO5TAB88 PO; -ASPI-1497 PO; -ATOR20TA65 PO; +ATOR40TA70 MT; +CLOP75TA4 PO; +DULO30CA52; +GABA-531; +HYDR-4001 MT; +LEVO75TA7 PO; +METF-414 PO; +NITR-87 MT; +SIMV-43; +TOPUD PO
[2019-10-03] MEDS ORDERED: SODIUM CHLORIDE 0.9% 1,000 ML IV ONE (03:22)
[2019-10-03 03:43] LABS: BASOPHILS % 0.4 % (0.0-2.0); HEMATOCRIT. 39.5 % (36.0-48.0); HEMOGLOBIN. 13.9 g/dL (12.0-16.0); LYMPHOCYTES % 12.8 % (20.0-50.0); MEAN CORPUSCULAR HEMOGLOBIN 32.5 pg (28.0-32.0); MEAN CORPUSCULAR VOLUME 92.3 fL (81.0-99.0); MEAN PLATELET VOLUME 10.4 fl (7.4-10.4); MONOCYTES % 2.4 % (2.0-8.0); NEUTROPHILS % 84.4 % (40.0-76.0); PLATELET 258 x1000/uL (130-400); RED BLOOD CELL COUNT 4.28 mill/uL (4.2-5.4); RED CELL DISTRIBUTION WIDTH 13.4 % (11.6-14.6)
[2019-10-03] MEDS ORDERED: VISCOUS LIDOCAINE 2% 15 ML UDC MM STA (03:44)
[2019-10-03] MEDS ORDERED: KETOROLAC 15MG/ML VIAL IV ONE (03:45)
[2019-10-03 03:46] LABS: CHLORIDE 101 mEq/L (98-107)
[2019-10-03 04:07] LABS: ETHANOL BLOOD < 10 mg/dL
[2019-10-03 04:09] LABS: BETA HYDROXYBUTYRATE 0.1 mMol/L (0.0-0.3)
[2019-10-03 04:27] LABS: *AMPHETAMINES SCREEN URINE NEGATIVE (NEGATIVE); *BARBITURATES SCREEN URINE NEGATIVE (NEGATIVE); *BENZODIAZEPINES SCREEN URINE NEGATIVE (NEGATIVE); *COCAINE SCREEN URINE NEGATIVE (NEGATIVE); METHADONE URINE SCREEN NEGATIVE (NEGATIVE)
[2019-10-03 04:28] LABS: CANNABINOID URINE SCREEN NEGATIVE (NEGATIVE); OPIATES URINE SCREEN NEGATIVE (NEGATIVE); PHENCYCLIDINE URINE SCREEN NEGATIVE (NEGATIVE)
[2019-10-03] MEDS ORDERED: IOHEXOL-300 100 ML BOTTLE ONE (05:07)
[2019-10-03 09:39] VITALS: BP 139/63
== END 2019-10-03 10:02 | disposition home or self-care (01) ==
LOC: ER 02:35
DX: K12.0 Recurrent oral aphthae (principal); R06.02 Shortness of breath; R07.89 Other chest pain; R73.9 Hyperglycemia, unspecified; R53.1 Weakness
CPT/HCPCS: 36415; 70491; 71045; 80053; 80305; 80320; 82010; 82962; 83880; 84484; 85025; 86703; 93005; 96361; 96374; 99285; J1885; J7030; Q9967; G0480

== ENCOUNTER 2019-10-06 23:43 | Emergency (ER) | payer MEDICAID ==
[~2019-10-06] VITALS: Ht 170.2 cm; Wt 95.0 kg
[2019-10-07] MEDS ORDERED: NALOXONE HCL 0.4 MG/ML 1ML VIAL IV PRN (00:15)
[2019-10-07 00:47] LABS: BASOPHILS % 0.5 % (0.0-2.0); HEMATOCRIT. 42.5 % (36.0-48.0); HEMOGLOBIN. 14.7 g/dL (12.0-16.0); LYMPHOCYTES % 17.3 % (20.0-50.0); MEAN CORPUSCULAR VOLUME 92.6 fL (81.0-99.0); MONOCYTES % 4.8 % (2.0-8.0); NEUTROPHILS % 77.4 % (40.0-76.0); PLATELET 290 x1000/uL (130-400); RED BLOOD CELL COUNT 4.58 mill/uL (4.2-5.4); RED CELL DISTRIBUTION WIDTH 13.5 % (11.6-14.6)
[2019-10-07 00:55] LABS: PROTHROMBIN TIME 10.5 sec (9.6-11.0)
[2019-10-07 00:57] LABS: CHLORIDE 105 mEq/L (98-107)
[2019-10-07 01:01] LABS: CLARITY URINE CLEAR (CLEAR); COLOR URINE YELLOW (YELLOW); KETONES URINE NEGATIVE (NEGATIVE); LEUKOCYTE ESTERASE URINE NEGATIVE (NEGATIVE); NITRITE URINE NEGATIVE (NEGATIVE); OCCULT BLOOD URINE NEGATIVE (NEGATIVE); PH URINE 5.5 (4.5-8.0); PROTEIN URINE 1+ (NEGATIVE); SPECIFIC GRAVITY URINE 1.023 (1.005-1.030)
[2019-10-07 01:02] LABS: ETHANOL BLOOD < 10 mg/dL
[2019-10-07 01:16] LABS: *AMPHETAMINES SCREEN URINE PRESUMTIVE POSITIVE (NEGATIVE); *BARBITURATES SCREEN URINE NEGATIVE (NEGATIVE)
[2019-10-07 01:17] LABS: *BENZODIAZEPINES SCREEN URINE NEGATIVE (NEGATIVE); *COCAINE SCREEN URINE PRESUMTIVE POSITIVE (NEGATIVE); CANNABINOID URINE SCREEN NEGATIVE (NEGATIVE); METHADONE URINE SCREEN NEGATIVE (NEGATIVE); OPIATES URINE SCREEN NEGATIVE (NEGATIVE); PHENCYCLIDINE URINE SCREEN NEGATIVE (NEGATIVE)
[2019-10-07] MEDS ORDERED: LACTULOSE 20G/30ML UDC PO NR (01:45)
[2019-10-07] MEDS ORDERED: IBUPROFEN 600MG TABLET PO ONE (17:15)
[2019-10-09 20:01] VITALS: BP 154/80
== END 2019-10-09 20:27 | disposition home or self-care (01) ==
LOC: ER 23:53
DX: R45.851 Suicidal ideations (principal); I10 Essential (primary) hypertension; F15.90 Other stimulant use, unspecified, uncomplicated; F14.90 Cocaine use, unspecified, uncomplicated; E72.20 Disorder of urea cycle metabolism, unspecified; Z79.899 Other long term (current) drug therapy
CPT/HCPCS: 82962; 93005; 96374; 99285; J2310

== ENCOUNTER 2021-06-23 05:58 | Emergency (ER) | payer OTHER ==
[~2021-06-23] VITALS: Ht 167.6 cm; Wt 103.0 kg
[~2021-06-23 05:58] MED LIST changes: -AMLO10TA80 PO; +ASPI-1160 PO; +CLOP-31 PO; -CLOP75TA4 PO; -GABA-531; +IBUP-2030 PO; +LISI20TA31 PO; +LISI40TA13 PO; -LISI40TA4 PO; +NIFE-32 PO; -NITR-87 MT; +SERT-422 PO
[2021-06-23] MEDS ORDERED: ACETAMINOPHEN 325MG TABLET PO ONE (06:15)
[2021-06-23] MEDS ORDERED: KETOROLAC 60MG/2ML VIAL IM ONE (06:15)
[2021-06-23] MEDS ORDERED: MORPHINE SULFATE 2 MG/ML CPJ (NOT FOR IM USE) IV ONE (10:30)
[2021-06-23 14:27] VITALS: BP 139/77
== END 2021-06-23 14:57 | disposition home or self-care (01) ==
LOC: ER 05:58
DX: M54.50 Low back pain, unspecified (principal); F17.200 Nicotine dependence, unspecified, uncomplicated; E11.9 Type 2 diabetes mellitus without complications; I10 Essential (primary) hypertension; Z79.899 Other long term (current) drug therapy; Z86.73 Personal history of transient ischemic attack (TIA), and cerebral infarction without residual deficits
CPT/HCPCS: 82962; 93970; 96372; 96374; 99285; J1885; J2270